=== PATIENT | female | born 1985 | race Caucasian/White ===

== ENCOUNTER 2021-10-25 11:29 | Outpatient (REF) | payer OTHER, SELFPAY ==
[2021-10-25 11:55] LABS: Binax Internal Control QC Valid; Binax Now Covid-19 Ag Negative (Negative)
== END 2021-10-25 11:30 | disposition home or self-care (01) ==
LOC: HO.HMGCLDS 11:29
PROVIDERS: Visit Provider Physician Assistant Medical
DX: Z13.89 Encounter for screening for other disorder (principal)

== ENCOUNTER 2022-10-17 08:51 | Outpatient (REF) | payer OTHER, SELFPAY ==
[2022-10-17 11:31] LABS: MANUAL DIFF FLAG NO
[2022-10-17 11:37] LABS: Appearance Urine Clear; Color Urine Yellow; Glucose Urine UA Negative (Negative); Leukocyte Esterase Urine Trace (Negative); Nitrite Urine Negative (Negative); PH 5.5 (5.0-9.0); Specific Gravity - Urine 1.015 (1.005-1.025); UMIC TRIGGER UACC YES; Urine Blood Negative (Negative); Urine Ketones Negative (Negative); Urine Protein Negative (Neg-Trace)
[2022-10-17 11:41] LABS: Bacteria Urine None Seen (None Seen); Hyaline Casts Urine 0-2 /LPF (0-2); Squamous Epithelial Cell Urine 0-2 /HPF (0-2); WBC Urine 0-5 /HPF (0-5)
[2022-10-17 11:45] LABS: Basophils Percent Auto 0.4 % (0-2); Eosinophils Absolute Auto 0.2 X10*3/uL (0.0-0.4); Eosinophils Percent Auto 2.1 % (0-4); Hematocrit 43.7 % (37.0-47.0); Hemoglobin 14.3 g/dl (12.0-16.0); Imm Gran Abs Auto 0.03 X10*3/uL (0.00-0.03); Imm Gran Pct Auto 0.4 % (0.0-0.4); Lymphocytes Absolute Auto 2.5 X10*3/uL (1.2-4.9); Lymphocytes Percent Auto 33.3 % (20-40); Mean Corpuscular HGB Conc 32.7 g/dl (31.0-35.0); Mean Corpuscular Hemoglobin 29.3 pg (27.0-33.0); Mean Corpuscular Volume 89.5 fL (80.0-98.0); Mean Platelet Volume 10.6 fL (9.4-12.3); Monocytes Absolute Auto 0.5 X10*3/uL (0.1-1.2); Neutrophils Absolute Auto 4.4 x10*3/uL (2.0-8.3); Neutrophils Percent Auto 57.8 % (45-73); Platelet Count 315 X10*3/uL (160-400); Red Blood Count 4.88 X10*6/uL (4.20-5.50); Red Cell Distribution Width 12.4 % (11.0-16.0); White Blood Count 7.6 X10*3/uL (4.8-10.8)
[2022-10-17 11:56] LABS: Alanine Aminotransferase 19 U/L (0-31); Albumin Level 3.9 g/dL (3.5-5.0); Alkaline Phosphatase 81 U/L (39-117); Anion Gap 12 (12-20); Aspartate Amino Transferase 19 U/L (5-31); Bilirubin Total 0.5 mg/dL (0.0-1.0); Blood Urea Nitrogen 10 mg/dL (9-16); Carbon Dioxide 25 mmol/L (22-29); Chloride 104 mmol/L (96-108); Cholesterol 230 mg/dL; Estimated Glomerular Filt Rate > 60; Glucose Fasting 79 mg/dL (60-99); HDL Cholesterol 50 mg/dL; LDL Cholesterol Calculated 163 mg/dl; Potassium 4.6 mmol/L (3.3-5.1); Sodium 136 mmol/L (135-145); Total Protein 7.1 g/dL (6.5-8.0); Triglycerides 87 mg/dL
[2022-10-17 12:17] LABS: TSH reflex Free T4 2.01 uIU/mL (0.32-4.0)
== END 2022-10-17 08:52 | disposition home or self-care (01) ==
LOC: HO.HMGCLDS 08:51
PROVIDERS: PCP Nurse Practitioner Family; Visit Provider Nurse Practitioner Family
DX: Z00.00 Encounter for general adult medical examination without abnormal findings (principal)
CPT/HCPCS: 36415; 80053; 80061; 81001; 84443; 85025

== ENCOUNTER 2023-09-18 09:11 | Outpatient (AMB) | payer BC, SELFPAY ==
[2023-09-18 10:54] VITALS: BP 110/70; PULSE 84; TEMP 36.4; O2SAT 99; BMI 33.8
--- NOTE | 2023-09-18 10:54 | AM.OFFWIN_ITS ---
Intake Vital Signs 09/18/23 10:54 Height 5 ft 5 in Weight 203 lb BMI 33.8 BP 110/70 Blood Pressure Location Lt brachial Position Sitting Pulse 84 Pulse Source Pulse Oximeter Temp 97.6 F Temp Source Temporal Artery Scan Pulse Oximetry (%) 99 Oxygen Delivery Method Room Air Intake Visit Reasons: EP lower back pain [id number] Intake Note: pt is here today for lower back pain 1x week, possible turned the wrong way Patient Tobacco Use Status: Never used Tobacco Allergies No Known Allergies [NKA] Allergy (Mild, Verified 09/18/23 11:22) NOT APPLICABLE Do you need a note to return to daycare/school/sports/work: Yes HPI HPI Comments History of Present Illness Details Last onset of back pain in lower back She is unsure of trauma with turning No heavy lifting injury She said pain is intermittent but also can be constant some days Worse with movement Has been taking OTC NSAIDs with some relief She fell a few years ago on tailbone which caused this kind of pain but has not happened since She said pain is centered in lower back and goes across back but not into legs She denies stool incontinence Slight dysuria without frequency or urgency Dysuria isnt constant No vaginal bleeding Denies chance No numbess, tingling or weakness in legs PFSH Social History Housing: House Patient Tobacco Use Status: Never used Tobacco e-Cigarette/Vaping Use: Never Used Second Hand Smoke Exposure: Yes service: No Current occupational status: employed Current occupation: [employer] Current occupational exposures/hazards: No Cognitive needs: No Hearing needs: No Vision needs: No Review of Systems Const Denies chills, Denies fatigue and Denies fever(s) Card Denies chest pain, Denies rapid heart rate, Denies edema, Denies leg edema and Denies dyspnea Resp Denies cough and Denies dyspnea GI Denies abdominal pain, Denies melena, Denies hematochezia, Denies constipation, Denies fecal incontinence and Denies diarrhea Denies urinary frequency, Denies difficulty voiding, Reports dysuria, Denies urinary incontinence, Denies urinary hesitancy, Denies urinary urgency and Denies vaginal discharge (denies bleeding. Denies chance ) Musc Reports back pain, Denies myalgias, Denies numbness, Reports stiffness (lower back) and Denies tingling Skin/Breast Denies rash Neuro Denies Abnormal speech present, Denies lack of coordination, Denies numbness and Denies tingling Endo Denies fatigue Physical Exam Vital Signs: Last Vital Signs Temp 97.6 F 09/18/23 10:54 Pulse 84 09/18/23 10:54 BP 110/70 09/18/23 10:54 Pulse Ox 99 09/18/23 10:54 Oxygen Delivery Method Room Air 09/18/23 10:54 BMI result Body Mass Index 33.8 General: Non-toxic, NAD. Speaking full sentences. Skin: Warm dry throughout. No posterior back or flank rashes, ecchymosis or lesions Eye: EOMI HENT: Airway patent. Uvula midline. No pharyngeal erythema or edema. 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 Respiratory: CTA bilaterally. No wheezes, rales or rhonchi Cardiac: RRR. No murmur MSK: No midline cervical or thoracic tenderness. + tenderness to palpation lower lumbar spine and sacral region. No sciatic tenderness bilaterally. Negative SLR bilaterally. Full ROM upper extremities. 5/5 strength dorsal flexion/extension great toe bilaterally. No CVAT Neurology: A/O. No aphasia or facial droop. Gait is slow without abnormality or foot drop Psych: Good mood and affect Neuro Speech: No Abnormal speech present Results AMB Urinalysis, Automated UA Leukoctes 500 Lake/uL Last Edit by Elkin Malone CMA on 09/18/23 12:3 5 UA Nitrite Negative Last Edit by Elkin Malone CMA on 09/18/23 12:35 UA Urobilinogen 0.2 mg/dL Last Edit by Elkin Malone CMA on 09/18/23 12 :35 UA Protein 0 mg/dL Last Edit by Elkin Malone CMA on 09/18/23 12:35 UA pH 7.0 Last Edit by Elkin Malone CMA on 09/18/23 12:35 UA Blood 0 Fran/uL Last Edit by Elkin Malone CMA on 09/18/23 12:35 UA Specific [place] 1.010 Last Edit by Elkin Malone CMA on 09/18/23 12:35 UA Ketone Negative Last Edit by Elkin Malone CMA on 09/18/23 12:35 UA Bilirubin 0 mg/dL Last Edit by Elkin Malone CMA on 09/18/23 12:35 UA Glucose 0 mg/dL Last Edit by Elkin Malone CMA on 09/18/23 12:35 AMB Test Urine AMB Test Urine Negative Last Edit by Elkin Malone CMA on 09/18/23 12:36 Assessment & Plan Assessment & Plan (1) Back pain: Code(s): M54.9 - Dorsalgia, unspecified Qualifiers: Back pain location: low back pain Chronicity: acute Back pain laterality: midline Sciatica presence: without sciatica Qualified Code(s): M54.50 - Low back pain, unspecified Plan: Patient seen and evaluated. No rashes or lesions noted Xray lumbar/sacrum ordered; U/a: + 3+ leuks without protein or blood or nitrates Will cover with macrobid and advise fluid hydration and f/u with PCP for recheck post antibiotic completion negative If any inability to urinate, blood, worsening pain, incontience etc go to ED Patient gave verbal understanding and had no additional questions or concerns at time of discharge All questions answered (2) Urinary tract infection: Code(s): N39.0 - Urinary tract infection, site not specified Qualifiers: Hematuria presence: without hematuria Urinary tract infection type: acute cystitis Qualified Code(s): N30.00 - Acute cystitis without hematuria Plan: see above Orders: Orders XR lumbar spine 2-3V Today M54.9 - Dorsalgia, unspecified XR sacrum coccyx min 2V Today M54.9 - Dorsalgia, unspecified AMB Urinalysis Automated Today Z13.9 - Encounter for screening, unspecified AMB HCG Urine Test Today Z13.9 - Encounter for screening, unspecified Medications: New nitrofurantoin monohyd/m-cryst 100 mg (Macrobid) must administer with a meal/food 100 mg PO BID 14 caps 0RF N39.0 - Urinary tract infection, site not specified Coding Level of Care Code Est Pt Level 3 (06729) Diagnoses Acute midline low back pain without sciatica M54.50 Back pain location: low back pain Chronicity: acute Back pain laterality: midline Sciatica presence: without sciatica Acute cystitis without hematuria N30.00 Hematuria presence: without hematuria Urinary tract infection type: acute cystitis
== END 2023-09-18 12:41 | disposition home or self-care (01) ==
PROVIDERS: PCP Nurse Practitioner Family; Visit Provider Physician Assistant
DX: M54.9 Dorsalgia, unspecified (principal); Z32.02 Encounter for pregnancy test, result negative; R30.0 Dysuria
CPT/HCPCS: 81003; 81025; 99213

== ENCOUNTER 2023-09-18 12:04 | Outpatient (REF) | payer BC, SELFPAY ==
--- NOTE | ~2023-09-18 | XR_ITS ---
EXAMINATION: XR LUMBOSACRAL SPINE CLINICAL INFORMATION: Lumbar spine pain COMPARISON: Lumbar spine x-ray on 12/09/2013 TECHNIQUE: Three views of the lumbosacral spine. FINDINGS: The visualized lumbar vertebrae are intact with normal alignment. Intervertebral disc spaces are normal. T-shaped intrauterine contraceptive device is seen in left parasagittal upper pelvic cavity. XR/XR lumbar spine 2-3V IMPRESSION: 1. Unchanged Normal lumbosacral spine x-ray. 2. No fracture or dislocation of lumbar spine is seen.
--- NOTE | ~2023-09-18 | XR_ITS ---
EXAMINATION: XR SACRUM AND COCCYX CLINICAL INFORMATION: Tailbone pain COMPARISON: X-ray sacrum and coccyx on 12/09/2013 TECHNIQUE: 3 views of the sacrum and coccyx were obtained. FINDINGS: There are no fractures. No bone, joint or soft tissue abnormality is demonstrated. T-shaped intrauterine contraceptive device is seen in left parasagittal upper pelvic cavity. XR/XR sacrum coccyx min 2V IMPRESSION: 1. Unchanged normal x-rays of sacrum and coccyx. 2. Persistent T-shaped intrauterine contraceptive device is seen.
== END 2023-09-18 12:05 | disposition home or self-care (01) ==
LOC: HO.HMGCX 12:04
PROVIDERS: PCP Nurse Practitioner Family; Visit Provider Physician Assistant
DX: M54.9 Dorsalgia, unspecified (principal)
CPT/HCPCS: 72100; 72220

== ENCOUNTER 2023-10-15 07:30 | Outpatient (AMB) | payer BC, SELFPAY ==
[2023-10-15 07:42] VITALS: BP 136/86; PULSE 82; O2SAT 100; BMI 33.8
--- NOTE | 2023-10-15 07:42 | MHC.PC.OV ---
Vital Signs 10/15/23 07:42 Height 5 ft 5 in Weight 203 lb BMI 33.8 BP 136/86 Blood Pressure Location Rt brachial Position Sitting Pulse 82 Pulse Source Pulse Oximeter Pulse Oximetry (%) 100 Oxygen Delivery Method Room Air Intake Visit Reasons: PE Intake Note: Pt is here today for her PE Allergies No Known Allergies [NKA] Allergy (Mild, Verified 10/15/23 07:42) NOT APPLICABLE Tobacco use date assessed: 10/15/23 Dental Screening Dental Screen Date: 10/15/23 Did you have a dental visit in the last 12 months?: No Was dental information given to patient?: No HPI PE HPI Details Pt is here for a PE. Will order labs. Has a obstetrics/gynecology nurse. [facility] Social History Housing: House Patient Tobacco Use Status: Never used Tobacco e-Cigarette/Vaping Use: Never Used Second Hand Smoke Exposure: Yes service: No Current occupational status: employed Current occupation: [employer] Current occupational exposures/hazards: No Cognitive needs: No Hearing needs: No Vision needs: No Questionnaire PHQ-9 Over the last 2 weeks, how often have you been bothered by any of the following problems? 1. Little interest or pleasure in doing things: not at all 2. Feeling down, depressed, or hopeless: not at all 3. Trouble falling or staying asleep, or sleeping too much: not at all 4. Feeling tired or having little energy: not at all 5. Poor appetite or overeating: not at all 6. Feeling bad about yourself - or that you are a failure or have let yourself or your family down: not at all 7. Trouble concentrating on things, such as reading the newspaper or watching television: not at all 8. Moving or speaking so slowly that other people could have noticed. Or the opposite - being so fidgety or restless that you have been moving around a lot more than usual: not at all 9. Thoughts that you would be better off or of hurting yourself in some way: not at all Total score: 0 Depression Screening Interpretation: Negative Depression Screening Done: Yes 91993 - PHQ-9 Billing: Yes Source: Developed by Drs. Stevie Lopez, Albertina Fofana, Fred Andre and colleagues, with an educational sofi from [employer] Thrive Questionnaire Date Thrive assessed: 10/15/23 I am a: Patient What is your living situation today?: I have a steady place to live Within the past 12 months, did the food you bought not last and you didn't have the money to get more?: Never true Within the past 12 months, did you worry whether your food would run out before you got money to buy more?: Never true Do you have trouble paying for medicines?: No Do you have trouble getting transportation to medical appointments?: No Do you have trouble paying your heating and electricity bill?: No Do you have trouble taking care of your child, family member or friend?: No Do you have trouble with day-to-day activities such as bathing, preparing meals, shopping, managing finances, etc.?: No Are you currently unemployed and looking for a job?: No Are you interested in more education?: No Currently or been in a relationship where the following occur: no concerns reported THRIVE Score: 0 AUDIT C Alcohol Use Questionnaire (AUDIT-C) 1. How often do you have a drink containing alcohol?: Monthly or less 2. How many drinks containing alcohol do you have on a typical day when you are drinking?: 1 or 2 3. How often do you have six or more drinks on one occasion?: Never Total Score: 1 Score Reviewed/Action Taken: Yes ELIECER-7 AMB Questionnaire ELIECER-7 Date ELIECER - 7 assessed: 10/15/23 Feeling nervous, anxious, or on edge: 0 = Not at all Not being able to stop or control worryin = Not at all Worrying too much about different things: 0 = Not at all Trouble relaxin = Not at all Being so restless that it is hard to sit still: 0 = Not at all Becoming easily annoyed or irritable: 0 = Not at all Feeling afraid as if something awful might happen: 0 = Not at all Total ELIECER-7 score (0-4 normal; 5-9 mild; 10-14 moderate; 15-21 severe): 0 Source: Developed by Drs. Stevie Lopez, Albertina Fofana, Fred Andre and colleagues, with an educational sofi from [employer] ELIECER-7 Assessment Billing ELIECER-7 Assessment Tool: ELIECER-7 Assessment 12015 Review of Systems Const Denies chills and Denies fever(s) Eyes Denies blurry vision ENT Denies vertigo, Denies dizziness and Denies sore throat Card Denies chest pain at rest, Denies chest pain with activity, Denies diaphoresis, Denies dyspnea and Denies dyspnea on exertion Resp Denies cough, Denies dyspnea, Denies dyspnea on exertion and Denies wheezing GI Denies abdominal pain, Denies melena, Denies hematochezia, Denies constipation, Denies diarrhea and Denies loose stools Denies hematuria Musc Denies numbness and Denies tingling Skin/Breast Denies lesions Neuro Denies vertigo, Denies dizziness, Denies numbness and Denies tingling Psych Denies anxiety, Denies depression, Denies homicidal ideation, Denies suicidal ideation and Denies other (substance abuse) Aller/Immun Denies wheezing Physical exam (Primary Care) Vital Signs: Last Vital Signs Pulse 82 10/15/23 07:42 BP 136/86 10/15/23 07:42 Pulse Ox 100 10/15/23 07:42 Oxygen Delivery Method Room Air 10/15/23 07:42 BMI result Body Mass Index 33.8 Tobacco/Smoking Status: Tobacco use Status Tobacco use date assessed 10/15/23 10/15/23 07:44 Patient Tobacco Use Status Never used Tobacco 10/15/23 07:44 e-Cigarette/Vaping Use Never Used 10/15/23 07:44 Depression Screening Interpretation: Negative Thrive Assessment: Date of Thrive Assessment Date Thrive assessed 10/10/22 10/15/23 07:44 Currently or been in a relationship where the following occur: no concerns reported Const General: cooperative Nutritional Appearance: obese Orientation/consciousness: patient oriented x3 HENMT Head: Yes normal to inspection, Yes normocephalic and Yes atraumatic Ears: TM's normal bilaterally Eyes General: appearance normal, both eyes and all related structures Alignment and Position: alignment normal and position normal Neck Neck: Yes normal visual inspection and Yes no lymphadenopathy Thyroid: Thyroid normal Resp Effort & Inspection: normal respiratory effort Auscultation: clear to auscultation bilaterally Cardio Rate: regular rate Rhythm: regular rhythm Heart sounds: S1 normal heart sound present, S2 normal heart sound present and no murmurs GI Palpation (GI): Soft to palpation and nontender Auscultation: normal bowel sounds Skin Rashes: no rashes Neuro General: patient oriented x3, moves all extremities, no focal motor deficits and deep tendon reflexes 2+ bilaterally Romberg Test: Negative Psych Appearance: grossly normal Mental Status: mental status grossly normal Speech and movement: Normal speech and movement present Affect: normal affect Attitude: cooperative Thought process: Normal thought process present Thought content: Normal thought content present Insight: Good insight present (Psych) Judgement: Good judgement present (Psych) Assessment and Plan Assessment & Plan (1) Physical exam: Code(s): Z00.00 - Encounter for general adult medical examination without abnormal findings Plan: Labs ordered Plan The patient agreed to the use of a medical records technician for this encounter. Scribed for MICHELE Galo by Tamiko Brown medical records technician, on 10/15/2023 at 07:50 EST. Orders: Orders Complete Blood Count Auto Diff Today Z00.00 - Encounter for general adult medical examination without abnormal findings TSH reflex Free T4 Today Z00.00 - Encounter for general adult medical examination without abnormal findings UA CC w/rflx Micro + Cult Today Z00.00 - Encounter for general adult medical examination without abnormal findings Lipid Panel Today Z00.00 - Encounter for general adult medical examination without abnormal findings Comprehensive [place]. Panel Fast Today Z00.00 - Encounter for general adult medical examination without abnormal findings Coding Level of Care Code Est Pt Prev Care 18-39y(36270) Diagnoses Physical exam Z00.00 Additional Codes ELIECER-7 Assessment Billing - ELIECER-7 Assessment Tool: ELIECER-7 Assessment [id number] ([id number])
== END 2023-10-15 07:54 | disposition home or self-care (01) ==
PROVIDERS: Visit Provider Nurse Practitioner Family
DX: Z00.00 Encounter for general adult medical examination without abnormal findings (principal)
CPT/HCPCS: 99395

== ENCOUNTER 2023-10-15 07:54 | Outpatient (REF) | payer BC, SELFPAY ==
[2023-10-15 11:10] LABS: MANUAL DIFF FLAG NO
[2023-10-15 11:18] LABS: Appearance Urine Clear; Color Urine Yellow; Glucose Urine UA Negative (Negative); Leukocyte Esterase Urine Trace (Negative); Nitrite Urine Negative (Negative); PH 6.5 (5.0-9.0); UMIC TRIGGER UACC YES; Urine Blood Negative (Negative); Urine Ketones Negative (Negative); Urine Protein Negative (Neg-Trace)
[2023-10-15 11:21] LABS: Basophils Percent Auto 0.4 % (0-2); Eosinophils Absolute Auto 0.1 X10*3/uL (0.0-0.4); Eosinophils Percent Auto 1.9 % (0-4); Hematocrit 46.5 % (37.0-47.0); Hemoglobin 15.1 g/dl (12.0-16.0); Imm Gran Abs Auto 0.05 X10*3/uL (0.00-0.03); Imm Gran Pct Auto 0.7 % (0.0-0.4); Lymphocytes Absolute Auto 2.2 X10*3/uL (1.2-4.9); Lymphocytes Percent Auto 29.5 % (20-40); Mean Corpuscular HGB Conc 32.5 g/dl (31.0-35.0); Mean Corpuscular Hemoglobin 29.7 pg (27.0-33.0); Mean Corpuscular Volume 91.5 fL (80.0-98.0); Mean Platelet Volume 10.2 fL (9.4-12.3); Monocytes Absolute Auto 0.4 X10*3/uL (0.1-1.2); Monocytes Percent Auto 5.6 % (2-11); Neutrophils Absolute Auto 4.5 x10*3/uL (2.0-8.3); Neutrophils Percent Auto 61.9 % (45-73); Platelet Count 373 X10*3/uL (160-400); Red Blood Count 5.08 X10*6/uL (4.20-5.50); Red Cell Distribution Width 12.1 % (11.0-16.0); White Blood Count 7.3 X10*3/uL (4.8-10.8)
[2023-10-15 11:36] LABS: Bacteria Urine None Seen (None Seen); Hyaline Casts Urine 0-2 /LPF (0-2); RBC Urine 0-2 /HPF (0-2); Squamous Epithelial Cell Urine 0-2 /HPF (0-2); WBC Urine 0-5 /HPF (0-5)
[2023-10-15 12:09] LABS: Alanine Aminotransferase 23 U/L (0-31); Albumin Level 4.2 g/dL (3.5-5.0); Alkaline Phosphatase 85 U/L (39-117); Anion Gap 13 (12-20); Aspartate Amino Transferase 21 U/L (5-31); Bilirubin Total 0.4 mg/dL (0.0-1.0); Blood Urea Nitrogen 8 mg/dL (9-16); Calcium 9.5 mg/dL (8.4-10.2); Carbon Dioxide 25 mmol/L (22-29); Chloride 104 mmol/L (96-108); Cholesterol 206 mg/dL (<200); Estimated Glomerular Filt Rate > 60; Glucose Fasting 83 mg/dL (60-99); HDL Cholesterol 53 mg/dL (>40); LDL Cholesterol Calculated 132 mg/dL (<100); Sodium 138 mmol/L (135-145); Total Protein 7.7 g/dL (6.5-8.0); Triglycerides 105 mg/dL (<150)
[2023-10-15 12:25] LABS: TSH reflex Free T4 1.76 uIU/mL (0.32-4.0)
== END 2023-10-15 07:55 | disposition home or self-care (01) ==
LOC: HO.HMGCLDS 07:54
PROVIDERS: PCP Nurse Practitioner Family; Visit Provider Nurse Practitioner Family
DX: Z00.00 Encounter for general adult medical examination without abnormal findings (principal)
CPT/HCPCS: 36415; 80053; 80061; 81001; 84443; 85025

== ENCOUNTER 2023-12-19 07:06 | Outpatient (REF) | payer BC, SELFPAY ==
[2023-12-19 11:06] LABS: Cholesterol 222 mg/dL (<200); HDL Cholesterol 58 mg/dL (>40); LDL Cholesterol Calculated 143 mg/dL (<100); Triglycerides 109 mg/dL (<150)
== END 2023-12-19 07:07 | disposition home or self-care (01) ==
LOC: HO.HMGCLDS 07:06
PROVIDERS: PCP Nurse Practitioner Family; Visit Provider Nurse Practitioner Family
DX: E78.5 Hyperlipidemia, unspecified (principal)
CPT/HCPCS: 36415; 80061

== ENCOUNTER 2024-05-01 09:12 | Outpatient (AMB) | payer BC, SELFPAY ==
--- NOTE | 2024-05-01 09:19 | AM.OFFWIN_ITS ---
Intake Vital Signs 05/01/24 09:22 Height 5 ft 5 in Weight 203 lb BMI 33.8 BP 122/80 Blood Pressure Location Rt brachial Position Sitting Pulse 96 Pulse Source Pulse Oximeter Temp 98.9 F Temp Source Oral Pulse Oximetry (%) 97 Oxygen Delivery Method Room Air Intake Visit Reasons: EP ?strep Intake Note: pt is here for possible strep Patient Tobacco Use Status: Never used Tobacco Allergies No Known Allergies [NKA] Allergy (Mild, Verified 05/01/24 09:23) NOT APPLICABLE Do you need a note to return to daycare/school/sports/work: No HPI EP ?strep HPI Details Patient is a 38-year-old female with history of urinary tract infections and dyslipidemia, who comes to the walk-in clinic complaining of acute sore throat since yesterday. She reports that she feels like she was hit by a truck , and has associated headache, fever, fatigue, occasional cough, body aches, nausea without vomiting, and difficulty speaking due to the swelling in her throat. She is taking [id number] medication with some relief. She also notices a white spot in the back of her throat in the mirror. She denies shortness of breath, chest pain, significant cough, weakness or dizziness, vomiting or diarrhea, ear pain, hearing loss, loss of sense of taste or smell, or other significant associated symptoms. She reports multiple episodes of strep throat as a child. [facility] Social History Housing: House Patient Tobacco Use Status: Never used Tobacco e-Cigarette/Vaping Use: Never Used Second Hand Smoke Exposure: Yes service: No Current occupational status: employed Current occupation: [employer] Current occupational exposures/hazards: No Cognitive needs: No Hearing needs: No Vision needs: No Review of Systems Const All systems reviewed & are unremarkable except as noted in HPI and below Physical Exam Vital Signs: Last Vital Signs Temp 98.9 F 05/01/24 09:22 Pulse 96 05/01/24 09:22 BP 122/80 05/01/24 09:22 Pulse Ox 97 05/01/24 09:22 Oxygen Delivery Method Room Air 05/01/24 09:22 BMI result Body Mass Index 33.8 Const General: cooperative, comfortable, alert, awake, Physically active and well groomed; No diaphoretic, intoxicated appearing, poor hygiene or tired appearing Orientation/consciousness: oriented to person Limitations: no limitations HEENT Head: Yes normal to inspection, Yes normocephalic and Yes atraumatic Ears: hearing grossly normal bilaterally, external ears normal and TM's normal bilaterally General nose exam: Normal external nose present, Normal nares present, No nasal polyps present, Normal nasal mucous membranes and turbinates present, Normal septum present and No nasal discharge present Face and sinus: Yes normal facial exam, Yes sinuses nontender and Yes face symmetric Mouth: Normal oral and palatal mucosa present, lip normal and tongue normal Throat: Yes posterior oropharynx normal, Yes abnormal tonsil (3 + tonsillar edema and white exudate versus tonsil stone to the left), No peritonsillar mass, No uvula laterally displaced, No uvular edema, No cobblestoning and Yes other (Associated erythema to the tonsils also) Eyes General: appearance normal, both eyes and all related structures Neck Neck: Yes normal visual inspection and Yes trachea midline Resp Effort & Inspection: normal respiratory effort Skin Other: Good color, warm and dry Neuro General: oriented to person Psych Appearance: grossly normal Mental Status: mental status grossly normal Speech and movement: Normal speech and movement present Affect: normal affect Attitude: cooperative Thought process: Normal thought process present Insight: Good insight present (Psych) Judgement: Good judgement present (Psych) Results AMB Rapid Strep AMB Rapid Strep Negative Last Edit by Elkin Malone CMA on 05/01/24 09 :32 Results Reviewed Results Reviewed: Laboratory Last Values Strep Scn Rapid Clinic Negative 05/01/24 09:31 Negative rapid strep Assessment & Plan Assessment & Plan (1) Pharyngitis: Code(s): J02.9 - Acute pharyngitis, unspecified Qualifiers: Pharyngitis/tonsillitis etiology: unspecified etiology Qualified Code(s): J02.9 - Acute pharyngitis, unspecified Plan Patient is a 38-year-old female with suspected strep pharyngitis. She has 3 + tonsillar edema and white exudate versus tonsil stone to the left side. Mild erythema notable also, and left anterior and submandibular lymphadenopathy as well as fast heart rate, headache, chills, and nausea. Her rapid strep test was negative, however due to criteria I will start her on Augmentin to cover possible strep. Results of flu COVID and RSV is also pending, and she did not check for COVID at home, so that is possible also. We discussed adequate fluid had intake, and due to her significant edema which makes speaking difficult and likely will impair swallowing, I also wrote her for short course of moderate dose prednisone, which she can start if [id number] anti-inflammatories are not helping her symptoms by tomorrow. She is aware of side effects of the prednisone. She will monitor symptoms and will follow up as needed. Orders: Orders AMB Rapid Strep Screen 05/01/24 Z13.9 - Encounter for screening, unspecified SARS-CoV2/FLU/RSV 05/01/24 J06.9 - Acute upper respiratory infection, unspecified Medications: New amoxicillin-pot clavulanate 875-125 mg 1 tab PO BID 14 tabs 0RF 7 days prednisone 40 mg (2 x 20 mg) PO DAILY 10 tabs 0RF 5 days Coding Level of Care Code Est Pt Level 4 (96188) Diagnoses Pharyngitis, unspecified etiology J02.9 Pharyngitis/tonsillitis etiology: unspecified etiology
[2024-05-01 09:22] VITALS: BP 122/80; PULSE 96; TEMP 37.2; O2SAT 97; BMI 33.8
== END 2024-05-01 10:29 | disposition home or self-care (01) ==
PROVIDERS: PCP Nurse Practitioner Family; Visit Provider Physician Assistant Medical
DX: J02.9 Acute pharyngitis, unspecified (principal)
CPT/HCPCS: 87880; 99214

== ENCOUNTER 2024-05-01 10:19 | Outpatient (REF) | payer BC, SELFPAY ==
[2024-05-01 11:48] LABS: Influenza A PCR NEGATIVE (Negative); Influenza B PCR NEGATIVE (Negative); Resp Syncy Virus RNA Qual PCR NEGATIVE (Negative); SARS COV2 PCR INHOUSE NEGATIVE (Negative)
== END 2024-05-01 10:20 | disposition home or self-care (01) ==
LOC: HO.LAB 10:19
PROVIDERS: Visit Provider Physician Assistant Medical
DX: J06.9 Acute upper respiratory infection, unspecified (principal)
CPT/HCPCS: 0241U

== ENCOUNTER 2024-11-11 08:21 | Outpatient (REF) | payer BC, SELFPAY ==
[2024-11-11 13:17] LABS: Appearance Urine Clear; Color Urine Yellow; Glucose Urine UA Negative (Negative); Leukocyte Esterase Urine Negative (Negative); Nitrite Urine Negative (Negative); Urine Blood Negative (Negative); Urine Ketones Negative (Negative); Urine Protein Negative (Neg-Trace)
[2024-11-11 13:20] LABS: MANUAL DIFF FLAG NO
[2024-11-11 13:29] LABS: Basophils Percent Auto 0.6 % (0-2); Eosinophils Absolute Auto 0.1 X10*3/uL (0.0-0.4); Eosinophils Percent Auto 2.1 % (0-4); Hematocrit 46.5 % (37.0-47.0); Hemoglobin 15.8 g/dl (12.0-16.0); Imm Gran Abs Auto 0.02 X10*3/uL (0.00-0.03); Imm Gran Pct Auto 0.3 % (0.0-0.4); Lymphocytes Absolute Auto 2.3 X10*3/uL (1.2-4.9); Lymphocytes Percent Auto 36.9 % (20-40); Mean Corpuscular Hemoglobin 30.7 pg (27.0-33.0); Mean Corpuscular Volume 90.5 fL (80.0-98.0); Mean Platelet Volume 10.4 fL (9.4-12.3); Monocytes Absolute Auto 0.4 X10*3/uL (0.1-1.2); Monocytes Percent Auto 6.2 % (2-11); Neutrophils Absolute Auto 3.4 x10*3/uL (2.0-8.3); Neutrophils Percent Auto 53.9 % (45-73); Platelet Count 306 X10*3/uL (160-400); Red Blood Count 5.14 X10*6/uL (4.20-5.50); Red Cell Distribution Width 12.3 % (11.0-16.0); White Blood Count 6.3 X10*3/uL (4.8-10.8)
== END 2024-11-11 08:22 | disposition home or self-care (01) ==
LOC: HO.HMGCLDS 08:21
PROVIDERS: PCP Nurse Practitioner Family; Visit Provider Nurse Practitioner Family
DX: Z00.00 Encounter for general adult medical examination without abnormal findings (principal); Z23 Encounter for immunization
CPT/HCPCS: 36415; 81003; 85025; 90471; 90715; 96127

== ENCOUNTER 2024-11-11 08:21 | Outpatient (AMB) | payer BC, SELFPAY ==
--- NOTE | 2024-11-11 08:46 | A.OFFPC_ITS ---
Vital Signs 11/11/24 08:52 Height 5 ft 5 in Weight 188 lb BMI 31.3 BP 120/78 Blood Pressure Location Lt brachial Position Sitting Pulse 83 Pulse Source Pulse Oximeter Pulse Oximetry (%) 99 Oxygen Delivery Method Room Air Intake Visit Reasons: Annual PE Allergies No Known Allergies [NKA] Allergy (Mild, Verified 11/11/24 09:10) NOT APPLICABLE Medication List - Last Reconciled 11/11/24 by SLOANE Ayers- levonorgestrel (Liletta) intrauterine Tobacco use date assessed: 11/11/24 Dental Screening Dental Screen Date: 11/11/24 Did you have a dental visit in the last 12 months?: Yes Did you have a dental problem in the last 6 months where you did not have access to dental care?: No Was dental information given to patient?: Patient has dentist HPI Annual PE HPI Details History of Present Illness The patient is a 39-year-old female presenting with a request for a physical exam. During the consultation, the patient reported a weight loss over the last year. However, she denied experiencing chest pain, shortness of breath, a bdominal pain, constipation, diarrhea, suicidal thoughts, or homicidal ideations. Does have a [employer] for Pap smears and I highly recommend she gets her first mammogram at the end of this year when she is due Health Maintenance Social History Review of Systems - General: Reports weight loss over the last year. - Cardiovascular: Denies chest pain. - Respiratory: Denies shortness of breat h. - Gastrointestinal: Denies abdominal elsy n, constipation, diarrhea. - Psychiatric: Denies suicidal thoughts, homicidal ideations. Physical Exam General: Cooperative, healthy appearing, comfortable, no acute distress and well developed, obese Orientation: Patient oriented x3 Limitations: No limitations Head: Normal to inspection Ears: Hearing grossly normal bilaterally Nose: Normal external nose present Face and sinus: Normal facial exam Eyes: Appearance normal, both eyes and all related structures Neck: Normal visual inspection and Yes full ROM Respiratory: Normal respiratory effort and able to speak in complete sentences. Clear to auscultation bilaterally Cardiovascular: Regular rate and rhythm. Normal S1 and S2 GI: Normal to inspection. Soft to palpation and nontender Skin: No rashes or lesions noted Neuro: Patient oriented x3 Extremities: Normal to inspection Results Plan labs Discussion Notes I discussed with the patient the physical examination findings which were normal, including clear lungs and normal heart sounds. We also reviewed her reported weight loss. As the patient did not report any symptoms or problems requiring further investigation, we concluded that no immediate diagnostic or therapeutic interventions were necessary at this time. The importance of regular health maintenance and monitoring was emphasized during our discussion. Patient Instructions - Continue monitoring weight and report any significant changes. - Maintain a healthy diet and lifestyle. - Schedule annual physical exams for [facility] health maintenance. - Contact the office if new symptoms jania se or for any health concerns. PFSH Surgical History No pertinent past surgical history Social History Housing: House Patient Tobacco Use Status: Never used Tobacco e-Cigarette/Vaping Use: Never Used Second Hand Smoke Exposure: Yes service: No Current occupational status: employed Current occupation: [employer] Current occupational exposures/hazards: No Cognitive needs: No Hearing needs: No Vision needs: No Questionnaire PHQ-9 Over the last 2 weeks, how often have you been bothered by any of the following problems? 1. Little interest or pleasure in doing things: not at all 2. Feeling down, depressed, or hopeless: not at all 3. Trouble falling or staying asleep, or sleeping too much: not at all 4. Feeling tired or having little energy: not at all 5. Poor appetite or overeating: not at all 6. Feeling bad about yourself - or that you are a failure or have let yourself or your family down: not at all 7. Trouble concentrating on things, such as reading the newspaper or watching television: not at all 8. Moving or speaking so slowly that other people could have noticed. Or the opposite - being so fidgety or restless that you have been moving around a lot more than usual: not at all 9. Thoughts that you would be better off or of hurting yourself in some way: not at all Total score: 0 Depression Screening Interpretation: Negative Depression Screening Done: Yes 36387 - PHQ-9 Billing: Yes Source: Developed by Drs. Stevie Lopez, Albertina Fofana, Fred Andre and colleagues, with an educational sofi from [employer] Thrive Questionnaire Date Thrive assessed: 11/11/24 I am a: Patient What is your living situation today?: I have a steady place to live Within the past 12 months, did the food you bought not last and you didn't have the money to get more?: Never true Within the past 12 months, did you worry whether your food would run out before you got money to buy more?: Never true Do you have trouble paying for medicines?: No Do you have trouble getting transportation to medical appointments?: No Do you have trouble paying your heating and electricity bill?: No Do you have trouble taking care of your child, family member or friend?: No Do you have trouble with day-to-day activities such as bathing, preparing meals, shopping, managing finances, etc.?: No Are you currently unemployed and looking for a job?: No Are you interested in more education?: No Please select the resources that you would like help with: None Currently or been in a relationship where the following occur: No concerns reported THRIVE Score: 0 AUDIT C Alcohol Use Questionnaire (AUDIT-C) 1. How often do you have a drink containing alcohol?: Monthly or less 2. How many drinks containing alcohol do you have on a typical day when you are drinking?: 1 or 2 3. How often do you have six or more drinks on one occasion?: Never Total Score: 1 Score Reviewed/Action Taken: Yes ELIECER-7 AMB Questionnaire ELIECER-7 Date ELIECER - 7 assessed: 11/11/24 Feeling nervous, anxious, or on edge: 0 = Not at all Not being able to stop or control worryin = Not at all Worrying too much about different things: 0 = Not at all Trouble relaxin = Not at all Being so restless that it is hard to sit still: 0 = Not at all Becoming easily annoyed or irritable: 0 = Not at all Feeling afraid as if something awful might happen: 0 = Not at all Total ELIECER-7 score (0-4 normal; 5-9 mild; 10-14 moderate; 15-21 severe): 0 Source: Developed by Drs. Stevie Lopez, Albertina Fofana, Fred Andre and colleagues, with an educational sofi from [employer] ELIECER-7 Assessment Billing ELIECER-7 Assessment Tool: ELIECER-7 Assessment 09518 Physical exam (Primary Care) Vital Signs: Last Vital Signs Pulse 83 11/11/24 08:52 BP 120/78 11/11/24 08:52 Pulse Ox 99 11/11/24 08:52 Oxygen Delivery Method Room Air 11/11/24 08:52 BMI result Body Mass Index 31.3 Tobacco/Smoking Status: Tobacco use Status Tobacco use date assessed 11/11/24 11/11/24 08:55 Patient Tobacco Use Status Never used Tobacco 11/11/24 08:46 e-Cigarette/Vaping Use Never Used 11/11/24 08:46 PHQ-9: PHQ-9 Score PHQ-9: Total score 0 11/11/24 08:55 Depression Screening Interpretation: Negative Thrive Assessment: Date of Thrive Assessment Date Thrive assessed 11/11/24 11/11/24 08:55 Currently or been in a relationship where the following occur: No concerns reported Coding Level of Care Code Est Pt Prev Care 18-39y(45069) Diagnoses Physical exam Z00.00 Additional Codes ELIECER-7 Assessment Billing - ELIECER-7 Assessment Tool: ELIECER-7 Assessment 30175 ([id number]) PHQ-9 - 25445 - PHQ-9 Billing: Yes ([id number]) Assessment & Plan Assessment & Plan (1) Physical exam: Code(s): Z00.00 - Encounter for general adult medical examination without abnormal findings Category: Medical Plan . Orders: Orders Complete Blood Count Auto Diff Today Z00.00 - Encounter for general adult medical examination without abnormal findings Lipid Panel Today Z00.00 - Encounter for general adult medical examination without abnormal findings Comprehensive [place]. Panel Fast Today Z00.00 - Encounter for general adult medical examination without abnormal findings TSH reflex Free T4 Today Z00.00 - Encounter for general adult medical examination without abnormal findings UA CC w/rflx Micro + Cult Today Z00.00 - Encounter for general adult medical examination without abnormal findings
[2024-11-11 08:52] VITALS: BP 120/78; PULSE 83; O2SAT 99; BMI 31.3
== END 2024-11-11 09:24 | disposition home or self-care (01) ==
PROVIDERS: PCP Nurse Practitioner Family; Visit Provider Nurse Practitioner Family
DX: Z23 Encounter for immunization (principal); Z00.00 Encounter for general adult medical examination without abnormal findings

== ENCOUNTER 2024-11-16 07:24 | Outpatient (REF) | payer BC, SELFPAY ==
[2024-11-16 10:25] LABS: Alanine Aminotransferase 23 U/L (0-31); Albumin Level 3.8 g/dL (3.5-5.0); Alkaline Phosphatase 75 U/L (39-117); Anion Gap 11 (12-20); Aspartate Amino Transferase 25 U/L (5-31); Bilirubin Total 0.7 mg/dL (0.0-1.0); Blood Urea Nitrogen 8 mg/dL (9-16); Calcium 8.9 mg/dL (8.4-10.2); Carbon Dioxide 23 mmol/L (22-29); Chloride 108 mmol/L (96-108); Cholesterol 193 mg/dL (<200); Estimated Glomerular Filt Rate > 60; Glucose Fasting 84 mg/dL (60-99); HDL Cholesterol 55 mg/dL (>40); LDL Cholesterol Calculated 124 mg/dL (<100); Potassium 4.3 mmol/L (3.3-5.1); Sodium 138 mmol/L (135-145); Total Protein 7.1 g/dL (6.5-8.0); Triglycerides 74 mg/dL (<150)
[2024-11-16 10:41] LABS: TSH reflex Free T4 1.52 uIU/mL (0.32-4.0)
== END 2024-11-16 07:25 | disposition home or self-care (01) ==
LOC: HO.HMGCLDS 07:24
PROVIDERS: PCP Nurse Practitioner Family; Visit Provider Nurse Practitioner Family
DX: Z00.00 Encounter for general adult medical examination without abnormal findings (principal)
CPT/HCPCS: 36415; 80053; 80061; 84443